=== PATIENT | male | born 1965 | race Caucasian/White ===

== ENCOUNTER 2024-08-29 14:20 | Emergency (ER) | payer OTHER, SELFPAY ==
[~2024-08-29] VITALS: Ht 177.8 cm; Wt 67.4 kg
[2024-08-29 14:22] VITALS: BP 158/94; TEMP 98.3; O2SAT 98
== END 2024-08-29 15:10 | disposition left against medical advice (07) ==
LOC: M ED 14:20
DX: Z53.21 Procedure and treatment not carried out due to patient leaving prior to being seen by health care provider (principal)